=== PATIENT | male | born 1970 | race Two or more races ===

== ENCOUNTER 2019-07-25 09:16 | Emergency (ER) | payer OTHER ==
[~2019-07-25] VITALS: Ht 172.7 cm; Wt 95.3 kg
[~2019-07-25 09:16] MED LIST: CATAFLAM50 MG PO; KETO10TA2 PO; LIPITOR40 MG; ORPH100T PO; TAMS0.4C; VASOTEC5 MG
== END 2019-07-25 18:15 | disposition home or self-care (01) ==
LOC: ER 09:16
DX: N20.0 Calculus of kidney (principal)

== ENCOUNTER 2019-12-12 05:58 | Emergency (ER) | payer OTHER ==
[~2019-12-12] VITALS: Ht 172.7 cm; Wt 95.3 kg
== END 2019-12-12 08:57 | disposition home or self-care (01) ==
LOC: ER 05:58
DX: M54.2 Cervicalgia (principal)